=== PATIENT | male | born 1950 | race Caucasian/White ===

== ENCOUNTER 2021-08-18 13:25 | Emergency (ER) | payer BC ==
[2021-08-18 13:47] VITALS: BP 170/74; PULSE 107; TEMP 98.4; BMI 25.7
== END 2021-08-18 14:15 | disposition home or self-care (01) ==
LOC: FER 13:25
PROC: 0HQGXZZ Repair Left Hand Skin, External Approach (ICD-10-PCS; principal; 2021-08-18)
DX: S61.012A Laceration without foreign body of left thumb without damage to nail, initial encounter (principal); W26.8XXA Contact with other sharp object(s), not elsewhere classified, initial encounter
CPT/HCPCS: 99282-25